=== PATIENT | male | born 1960 | race Caucasian/White ===

== ENCOUNTER 2019-08-02 03:44 | Emergency (ER) | payer OTHER ==
[~2019-08-02] VITALS: Ht 188 cm; Wt 88.5 kg
[2019-08-02] MEDS ORDERED: NAPROXEN500 MG PO (04:32)
== END 2019-08-02 04:42 | disposition home or self-care (01) ==
LOC: ED 03:44
DX: M72.2 Plantar fascial fibromatosis (principal)
CPT/HCPCS: 73630; 99283-25

== ENCOUNTER 2019-08-07 01:56 | Emergency (ER) | payer MEDICAID ==
[~2019-08-07] VITALS: Ht 188 cm; Wt 88.5 kg
[~2019-08-07 01:56] MED LIST: NAPROXEN500 MG PO
--- OUTSIDE RECORDS SUMMARY | 2019-08-07 01:58 | XMS ---
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 Radha has no Care Guidelines for this patient. Tito VISIT COUNT (12 MO.) 2 [facility] TOTAL 2 NOTE: Visits indicate total known visits. ED/C VISIT TRACKING (12 MO.) 08/07/2019 01:56 [facility] [place] TYPE: Emergency COMPLAINT: - COLD SYMPTOMS 08/02/2019 03:45 [facility] [place] TYPE: Emergency COMPLAINT: - SWOLLEN FEET DIAGNOSES: - Other specified soft tissue disorders - Plantar fascial fibromatosis INPATIENT VISIT TRACKING (12 MO.) No inpatient visits to display in this time frame [email or web address]
[2019-08-07] MEDS ORDERED: ZITHROMAX250 MG PO (02:51)
[2019-08-07] MEDS ORDERED: PROVENTIL HFA6.7 GM INH (02:51)
== END 2019-08-07 03:02 | disposition home or self-care (01) ==
LOC: ED 01:56
DX: J20.9 Acute bronchitis, unspecified (principal); R01.1 Cardiac murmur, unspecified
CPT/HCPCS: 71046; 99283-25